=== PATIENT | female | born 1975 | race Caucasian/White ===

== ENCOUNTER 2018-08-21 06:47 | Emergency (ER) | payer SELFPAY ==
[~2018-08-21] VITALS: Ht 154.9 cm; Wt 65.8 kg
--- NOTE | ~2018-08-21 | EKG ---
[place], [place] ELECTROCARDIOGRAM REPORT NAME: STEPHEN DICKERSON UNIT #: [id number] ROOM: DOCTOR: EPIPHANY DRAFT REPORT BIRTHDATE: [birth year] [facility] Test Date: 2018-08-21 Test Time: 07:56:39 Pat Name: STEPHEN DICKERSON Department: Room: Gender: F [employer]: Jo Morales : 1975 Requested By: ASHWINI CORONA Order Number: [id number] Reading MD: Jose Alfredo Paredes MD Measurements Intervals [place] Rate: 98 P: 33 NM: 134 QRS: -14 QRSD: 91 T: 29 QT: 336 QTc: 430 Interpretive Statements Sinus rhythm Electronically Signed On 08-21-2018 18:12:06 PST by Jose Alfredo Paredes MD CM:EKGRPT:ELECTROCARDIOGRAM REPORT [id number] ASHWINI CORONA MD [facility] DRAFT REPORT ASHWINI CORONA MD
[2018-08-21 08:09] LABS: BASO # 0.1 10*3/uL (0.0-0.1); BASO % 0.6 % (0.0-1.0); EOS # 0.4 10*3/uL (0.0-0.4); EOS % 4.4 % (1.0-4.0); HEMATOCRIT 43.6 % (37.0-47.0); LYMPH # 2.9 10*3/uL (1.3-4.4); LYMPH % 32.4 % (27.0-41.0); MEAN CELL VOLUME 90.5 fl (81.0-99.0); MEAN CORPUSCULAR HGB 31.1 pg (27.0-31.0); MEAN CORPUSCULAR HGB CONC 34.4 g/dl (33.0-37.0); MEAN PLATELET VOLUME 8.4 fl (9.6-12.3); MONO # 0.7 10*3/uL (0.1-1.0); MONO % 8.2 % (3.0-9.0); NEUT # 4.8 10*3/uL (2.3-7.9); NEUT % 54.1 % (47.0-73.0); PLATELET COUNT AUTOMATED 316 10*3/uL (130-400); RED BLOOD COUNT 4.82 10*6/uL (4.10-5.10); RED CELL DISTRI WIDTH 12.4 % (0-14.5); WHITE BLOOD COUNT 8.9 10*3/uL (4.8-10.8)
[2018-08-21 08:25] LABS: BUN 13 mg/dl (7-24); CHLORIDE 102 mmol/L (98-107); CREATININE 1.06 mg/dL (0.55-1.02); POTASSIUM 3.7 mmol/L (3.5-5.1); SODIUM 139 mmol/L (136-145)
[2018-08-21 08:26] LABS: TROPONIN I < 0.015 ng/ml (<0.045)
[2018-08-21] MEDS ORDERED: EPIPEN 2-P0.3 MG/0.3 IJ (09:23)
[2018-08-21] MEDS ORDERED: MEDROL DOSEPAK4 MG PO (09:23)
== END 2018-08-21 10:13 | disposition home or self-care (01) ==
LOC: ED 06:47
PROVIDERS: Emergency Medicine
DX: T88.6XXA Anaphylactic reaction due to adverse effect of correct drug or medicament properly administered, initial encounter (principal); T50.995A Adverse effect of other drugs, medicaments and biological substances, initial encounter; Y92.89 Other specified places as the place of occurrence of the external cause; Z87.891 Personal history of nicotine dependence; Z91.018 Allergy to other foods; Z91.048 Other nonmedicinal substance allergy status; Z91.012 Allergy to eggs; Z91.011 Allergy to milk products

== ENCOUNTER 2021-03-04 05:59 | Emergency (ER) | payer BC ==
[~2021-03-04] VITALS: Wt 64.9 kg
[~2021-03-04 05:59] MED LIST: EPIPEN 2-P0.3 MG/0.3 IJ; MEDROL DOSEPAK4 MG PO
[2021-03-04 06:34] LABS: BASO # 0.1 10*3/uL (0.0-0.1); BASO % 0.5 % (0.0-1.0); EOS # 0.4 10*3/uL (0.0-0.4); HEMATOCRIT 35.7 % (37.0-47.0); LYMPH # 0.7 10*3/uL (1.3-4.4); LYMPH % 5.9 % (27.0-41.0); MEAN CELL VOLUME 86.4 fl (81.0-99.0); MEAN CORPUSCULAR HGB 28.6 pg (27.0-31.0); MEAN CORPUSCULAR HGB CONC 33.1 g/dl (33.0-37.0); MEAN PLATELET VOLUME 9.2 fl (9.6-12.3); MONO # 0.7 10*3/uL (0.1-1.0); MONO % 5.9 % (3.0-9.0); NEUT # 10.6 10*3/uL (2.3-7.9); NEUT % 84.3 % (47.0-73.0); PLATELET COUNT AUTOMATED 355 10*3/uL (130-400); RED BLOOD COUNT 4.13 10*6/uL (4.10-5.10); RED CELL DISTRI WIDTH 14.4 % (0-14.5); WHITE BLOOD COUNT 12.5 10*3/uL (4.8-10.8)
[2021-03-04 06:51] LABS: ALBUMIN 3.3 gm/dl (3.1-4.5); ALKALINE PHOSPHATASE 101 U/L (45-117); BUN 16 mg/dl (7-24); CHLORIDE 108 mmol/L (98-107); CREATININE 1.09 mg/dL (0.55-1.02); POTASSIUM 4.2 mmol/L (3.5-5.1); SGOT/AST 96 IU/L (3-35); SGPT/ALT 61 U/L (12-78); SODIUM 139 mmol/L (136-145); TOTAL PROTEIN 7.2 gm/dL (6.4-8.2)
[2021-03-04 06:55] LABS: TROPONIN I < 0.015 ng/ml (<0.045)
[2021-03-04] MEDS ORDERED: PROTONIX40 MG PO (10:01)
== END 2021-03-04 10:11 | disposition home or self-care (01) ==
LOC: ED 05:59
PROVIDERS: Emergency Medicine
DX: K21.9 Gastro-esophageal reflux disease without esophagitis (principal); Z90.49 Acquired absence of other specified parts of digestive tract